=== PATIENT | male | born 1985 | race American Indian/Alaskan Native ===

== ENCOUNTER 2017-05-23 15:48 | Emergency (ER) | payer MEDICAID ==
[2017-05-23 16:13] VITALS: BP 115/56; PULSE 65; RESP 20; TEMP 98.1; O2SAT 99
[2017-05-23] MEDS ORDERED: Tmp-Smz 800 mg-160 mg DS Tab ONE (16:34)
[2017-05-23] MEDS: Tmp-Smz 800 mg-160 mg DS Tab PO STA (16:37)
--- NOTE | 2017-05-23 16:51 | ED PDOC ---
HPI: Skin/Bite Injury Time Seen by Provider: 05/23/17 15:54 Chief Complaint (Nursing): Abnormal Skin Integrity Chief Complaint (Provider): Facial abscess History Per: Patient Additional Complaint(s): 31 yo male, no PMH, presents to ED with complaints left sided facial abscess on and off for 7months, worse this week. Past Medical History Reviewed: Nursing Documentation, Vital Signs Vital Signs: Last Vital Signs Temp 98.1 F 05/23/17 16:11 Pulse 65 05/23/17 16:11 Resp 20 05/23/17 16:11 BP 115/56 L 05/23/17 16:11 Pulse Ox 99 05/23/17 16:58 - Medical History PMH: No Chronic Diseases Denies: Chronic Kidney Disease - Surgical History Surgical History: No Surg Hx - Family History Family History: States: Unknown Family Hx - Living Arrangements Living Arrangements: With Friends/Others - Social History Current smoker - smoking cessation education provided: Yes Alcohol: Social Drugs: Cannabis - Allergies Allergies/Adverse Reactions: Allergies Allergy/AdvReac Type Severity Reaction Status Date / Time No Known Allergies Allergy Verified 05/23/17 16:13 Review of Systems ROS Statement: Except As Marked, All Systems Reviewed And Found Negative Skin: Positive for: Other (facial swelling) Physical Exam - Reviewed Nursing Documentation Reviewed: Yes Vital Signs Reviewed: Yes - Physical Exam Appears: Positive for: Well, Non-toxic, No Acute Distress Head Exam: Positive for: ATRAUMATIC, NORMAL INSPECTION, NORMOCEPHALIC Skin: Positive for: Normal Color, Warm, DRY Eye Exam: Positive for: EOMI, Normal appearance, PERRL ENT: Positive for: Normal ENT Inspection Neck: Positive for: Normal, Painless ROM Cardiovascular/Chest: Positive for: Regular Rate, Rhythm Respiratory: Positive for: CNT, Normal Breath Sounds Gastrointestinal/Abdominal: Positive for: Normal Exam, Bowel Sounds, Soft Back: Positive for: Normal Inspection Extremity: Positive for: Normal ROM Neurologic/Psych: Positive for: Alert, Oriented Comments: Left mandibular area: 2 cm tender, erythematous, fluctuant mass - ECG O2 Sat by Pulse Oximetry: 99 Medical Decision Making Medical Decision Making: Time: 1625 Initial impression: Facial Abscess Initial plan: --Keflex 500 mg PO --Bactrim DS --Reevaluation Site needle aspirated, minimal purulent discharge Scribe Attestation: Documented by Niesha Rivera, acting as a scribe for Deidre Angulo PA-C Provider Scribe Attestation: All medical record entries made by the Scribe were at my direction and personally dictated by me. I have reviewed the chart and agree that the record accurately reflects my personal performance of the history, physical exam, medical decision making, and the department course for this patient. I have also personally directed, reviewed, and agree with the discharge instructions and disposition. Disposition - Clinical Impression Clinical Impression: Boil - Patient ED Disposition Is Patient to be Admitted: No - Disposition Disposition: Routine/Home Disposition Time: 17:06 Condition: STABLE Forms: [employer] ([place]uan)
== END 2017-05-23 17:14 | disposition home or self-care (01) ==
LOC: H.ER 15:48
DX: L02.02 Furuncle of face (principal)

== ENCOUNTER 2017-06-07 14:56 | Emergency (ER) | payer SELFPAY ==
[2017-06-07 15:19] VITALS: BP 148/98; PULSE 99; RESP 16; TEMP 98; O2SAT 100
--- NOTE | 2017-06-07 16:14 | ED PDOC ---
HPI: Skin/Bite Injury Chief Complaint (Nursing): Abnormal Skin Integrity Chief Complaint (Provider): Abnormal skin integrity History Per: Patient History/Exam Limitations: no limitations Onset/Duration Of Symptoms: Days (x2 weeks) Current Symptoms Are (Timing): Still Present Location Of Injury: Left: Face Quality Of Symptoms: Painful Additional Complaint(s): Jonnie Manuel is a 31 year old male, with no past medical history, who presents to the emergency department complaining of left sided facial abscess onset for x2 weeks. Patient was seen in the ED x2 weeks ago for the same symptoms was given antibiotics but with no relief of symptoms. Patient states he did not follow up with specialist. He denies any toothache, fever or chills. No further medical complaints. PMD: None provided. Past Medical History Reviewed: Historical Data, Nursing Documentation, Vital Signs Vital Signs: Last Vital Signs Temp 98.0 F 06/07/17 15:17 Pulse 99 H 06/07/17 15:17 Resp 16 06/07/17 15:17 BP 148/98 H 06/07/17 15:17 Pulse Ox 100 06/07/17 16:21 - Medical History PMH: No Chronic Diseases Denies: Chronic Kidney Disease - Surgical History Surgical History: No Surg Hx - Family History Family History: States: Unknown Family Hx - Home Medications Home Medications: Ambulatory Orders Medication Instructions Recorded Cephalexin [cephalexin] 500 mg PO BID #14 cap 05/23/17 Sulfamethoxazole/Trimethoprim 1 tab PO BID 5 Days tab 05/23/17 [Bactrim DS 800 mg-160 mg] Clindamycin [Cleocin] 300 mg PO BID #14 cap 06/07/17 - Allergies Allergies/Adverse Reactions: Allergies Allergy/AdvReac Type Severity Reaction Status Date / Time No Known Allergies Allergy Verified 05/23/17 16:13 Review of Systems ROS Statement: Except As Marked, All Systems Reviewed And Found Negative Constitutional: Negative for: Fever, Chills ENT: Negative for: Other (toothache) Skin: Positive for: Other (left side facial abscess) Physical Exam - Reviewed Nursing Documentation Reviewed: Yes Vital Signs Reviewed: Yes - Physical Exam Appears: Positive for: Well, Non-toxic, No Acute Distress Head Exam: Positive for: ATRAUMATIC, NORMAL INSPECTION, NORMOCEPHALIC Skin: Positive for: Normal Color, Warm, Dry Eye Exam: Positive for: Normal appearance ENT: Positive for: Other (Poor dentition noted. Left mandibular [id number] edema flunctuance. No erythema, or tenderness to palpation. positive edema noted to gum line. ) Neck: Positive for: Normal, Painless ROM, Supple Extremity: Positive for: Normal ROM. Negative for: Deformity, Swelling Neurologic/Psych: Positive for: Alert, Oriented - ECG O2 Sat by Pulse Oximetry: 100 (RA) Pulse Ox Interpretation: Normal Medical Decision Making Medical Decision Making: Initial Impression: Facial abscess Initial Plan: Needle aspiration wound care RX [facility] provided 16:05 --Aspirated 1cc of pus from abscess. 16:15 --Upon provider reevaluation patient is feeling better, is medically stable, and requires no further treatment in the ED at this time. Patient will be discharged home. Counseling was provided and all questions were answered regarding diagnosis and need for follow up with dentist. There is agreement to discharge plan. Return if symptoms persist or worsen. Disposition - Clinical Impression Clinical Impression: Abscess - Disposition Disposition: Routine/Home Disposition Time: 16:15 Condition: STABLE Prescriptions: Clindamycin [Cleocin] 300 mg PO BID #14 cap Instructions: Abscess (ED) Forms: [employer] ([place]ian) - POA Present On Arrival: None
== END 2017-06-07 16:21 | disposition home or self-care (01) ==
LOC: H.ER 14:56
DX: L02.01 Cutaneous abscess of face (principal)